=== PATIENT | female | born 1980 ===

== ENCOUNTER 2020-08-31 14:26 | Outpatient (REF) | payer SELFPAY ==
[2020-09-01 01:44] LABS: COVID-19 RT-PCR UVMMC Result Negative (Negative)
== END 2020-08-31 14:46 ==
LOC: LBN 14:26
PROVIDERS: Visit Provider Nurse Practitioner Adult Health
DX: Z11.59 Encounter for screening for other viral diseases (principal)
CPT/HCPCS: U0003